=== PATIENT | male | born 1980 | race Caucasian/White ===

== ENCOUNTER 2019-07-28 14:06 | Emergency (ER) | payer MEDICAID, OTHER ==
[~2019-07-28] VITALS: Ht 175.3 cm; Wt 100.0 kg
[2019-07-28 14:57] LABS: BASOPHILS % (AUTO) 0.5 % (0-1); EOSINOPHILS # (AUTO) 0.2 X10'3 (0-0.9); EOSINOPHILS % (AUTO) 3.5 % (0-6); HEMATOCRIT 42.9 % (42.0-52.0); HEMOGLOBIN 14.5 g/dl (14.0-17.9); MEAN CORPUSCULAR HEMOGLOBIN 29.8 PG (27.0-31.0); MEAN CORPUSCULAR HGB CONC 33.8 g/dL (33.0-36.5); MEAN PLATELET VOLUME 9.2 FL (7.4-10.4); MONOCYTES # (AUTO) 0.5 X10'3 (0-0.9); MONOCYTES % (AUTO) 8.6 % (2-12); NEUTROPHILS # (AUTO) 3.4 X10'3 (1.8-7.7); NEUTROPHILS % (AUTO) 55.4 % (42-75); PLATELET COUNT 222 X10'3 (140-440); RED BLOOD COUNT 4.87 X10'6 (4.70-6.10); RED CELL DISTRIBUTION WIDTH 13.1 % (11.5-14.5); WHITE BLOOD COUNT 6.2 X10'3 (4.5-11.0)
[2019-07-28 15:12] LABS: ALANINE AMINOTRANSFERASE 25 U/L (12-78); ALBUMIN 3.8 G/DL (3.4-5.0); ALBUMIN/GLOBULIN RATIO 1.2 (1.1-1.5); ALKALINE PHOSPHATASE 70 IU/L (46-116); ANION GAP 9 (8-16); ASPARTATE AMINO TRANSFERASE 21 U/L (10-37); BILIRUBIN,TOTAL 0.3 MG/DL (0.1-1.0); BLOOD UREA NITROGEN 17 MG/DL (7-18); BUN/CREATININE RATIO 22.7 (5.4-32.0); CALCIUM 8.9 MG/DL (8.5-10.1); CHLORIDE 104 MMOL/L (99-107); CREATININE 0.75 MG/DL (0.60-1.10); ETHANOL < 0.010 GM/DL (0.0-0.010); GLUCOSE 113 MG/DL (70-104); POTASSIUM 3.9 MMOL/L (3.5-5.1); SODIUM 141 MMOL/L (135-145); TOTAL CARBON DIOXIDE 28.1 MMOL/L (24-32); TOTAL PROTEIN 6.9 G/DL (6.4-8.2); eGFR > 90 ML/MIN
--- NOTE | 2019-07-28 15:30 | NUR ---
SECURITY COREY AT BEDSIDE HELPING PT TO GET HANGED INTO GREENS AND CLEAN SOCKS. URINE OBTAINED.
[2019-07-28 15:50] LABS: URINE AMPHETAMINE SCREEN NEGATIVE (Neg); URINE BARBITUATE SCREEN NEGATIVE (Neg); URINE BENZODIAZEPINES SCREEN NEGATIVE (Neg); URINE CANNABINOID SCREEN POSITIVE (Neg); URINE COCAINE SCREEN NEGATIVE (Neg); URINE METHADONE SCREEN NEGATIVE (Neg); URINE OPIATE SCREEN NEGATIVE (Neg); URINE PHENCYCLIDINE SCREEN NEGATIVE (Neg)
[2019-07-28] MEDS ORDERED: NO HOME MEDS (16:03)
--- NOTE | 2019-07-28 18:03 | NUR ---
PT RESTING LAYING IN HIS LEFT SIDE, RESPIRATIONS EVEN AND UNLABORED. NO DISTRESS NOTED AT THIS TIME.
--- NOTE | 2019-07-28 23:40 | NUR ---
Received report from BELTRAN [facility]. Awaiting patient arrival to the unit.
--- NOTE | 2019-07-29 00:05 | NUR ---
Attempted to talk to patient. Patient stated "just leave me alone, bitch." and murmured some more while turning his head away and his eyes closed. Will continue to monitor.
[2019-07-29] MEDS ORDERED: LORazepam 2 mg/ml vial IM ONE (00:10)
[2019-07-29] MEDS ORDERED: diphenhydrAMINE 50 mg/ml inj IM ONE (00:10)
[2019-07-29] MEDS ORDERED: haloperidol lactate 5mg/ml inj IM ONE (00:10)
--- NOTE | 2019-07-29 00:14 | NUR ---
Patient growing agitated, and murmuring things out loud. When approached and told to keep it down, patient started using profanity saying "you can't keep me in this institutionalized mental health place, bitch!", kicking the bed. MD Tracie aware and ordered one time dose of Benadryl 50mg IM, Haldol 5mg IM and Ativan 2mg IM now. Will administer and continue to monitor.
--- NOTE | 2019-07-29 00:45 | NUR ---
Patient's heart rate in high 40's. Patient arousable to shaking, opened eyes, murmured something and went back to sleep.
--- NOTE | 2019-07-29 00:55 | NUR ---
Patient currently resting comfortably.
--- NOTE | 2019-07-29 02:48 | NUR ---
Patient arousable to name now; resting comfortably on 14 even and unlabored respirations per minute. In no apparent distress.
--- NOTE | 2019-07-29 09:15 | NUR ---
PT IS BEING DISRUPTIVE TOWARD THE PT IN THE NEXT ROOM. MAKING LOUD NOISES AND CUSSING. NOTIFY
[2019-07-29] MEDS: OLANZapine 2.5MG tablet PO SCH (09:48)
--- NOTE | 2019-07-29 09:50 | NUR ---
MEDICAL RECORDS FAXED FROM HOSPITAL IN [place], [place] THIS MORNING. PT GIVEN ZYPREXA AT THE FACILITY IN JANUARY 2019. PT IS NOT ALLERGIC TO THE MEDICATION. PT AGREES TO TAKE THE MEDICATION. ADMIN MEDICATION ORDERED BY DR HOLLIS. SECURITY STAND BY NON EMERGENT. PT IS COOPERATIVE AND TAKES MEDICATION WITHOUT ANY PROBLEMS.
[2019-07-29] MEDS ORDERED: OLAN10TA3 PO (12:04)
--- NOTE | 2019-07-29 19:00 | NUR ---
PT RESTING PEACFULLY IN BED
--- NOTE | 2019-07-29 20:15 | NUR ---
PT INDEPENDENTLY REPOSTIONS / MOVES OCCATIONALLY FROM SIDE TO SIDE. CONTENT
--- NOTE | 2019-07-29 21:15 | NUR ---
PT ASKED HIS NEIGHBOR IN ROOM 26 TO QUIET DOWN SHE SPEAK ON THE PHONE , HE IS TRYING TO SLEEP
--- NOTE | 2019-07-29 22:29 | NUR ---
PT RESTING PEACFULL IN BED ON STOMACH AURSOABLE , NO COMPLIANTS
--- NOTE | 2019-07-29 23:30 | NUR ---
pt sleeping peacfully at this time in view of RNs
--- NOTE | 2019-07-29 23:45 | NUR ---
PT SLEEPING COMFORTABLY. SELF POSTIONS IN VIEW OF RNS
--- NOTE | 2019-07-30 00:43 | NUR ---
pt sleeping peacfully .SELF POSITIONING. CONTENT
--- NOTE | 2019-07-30 01:47 | NUR ---
PT SLEEPING PEACFULLY SELF POSITIONING
--- NOTE | 2019-07-30 02:45 | NUR ---
pt sleeping on his left side , content
--- NOTE | 2019-07-30 04:10 | NUR ---
PT ASLEEP . NO CHANGES TO PREVIOUS ASSESSMENT
--- NOTE | 2019-07-30 04:15 | NUR ---
pt up out of bed to bathroom for void
--- NOTE | 2019-07-30 05:18 | NUR ---
pt sleeping comfortably to left side
--- NOTE | 2019-07-30 05:45 | NUR ---
pt to bathroom . when asked if he needed help with the door he mumbled " get the fuvk away from me "
[2019-07-30] MEDS: OLANZapine 2.5MG tablet PO SCH (08:00)
--- NOTE | 2019-07-30 08:15 | NUR ---
pt refusing to take scheduled Zyprexa. States he used to take it and it gave him brain damage. Pt resting quietly in bed.
[2019-07-30] MEDS ORDERED: haloperidol lactate 5mg/ml inj IM ONE (08:50)
[2019-07-30] MEDS ORDERED: diphenhydrAMINE 50 mg/ml inj IM ONE (08:50)
[2019-07-30] MEDS ORDERED: LORazepam 2 mg/ml vial IM ONE (08:50)
--- NOTE | 2019-07-30 09:15 | NUR ---
Pt screaming and yelling random obcenities and cursing. Security at bedside. Pt unable to calm down. Mostly verbal, yelling sitting in his bed. Multiple security officers at bedside, noa lim called. Benadryl, Ativan, and Haldol ordered and given IM. Pt layed down after administration. Had one small verbal outburst after this incident and then layed down in bed. Pt appears to be calm and quiet at this time laying in bed.
--- NOTE | 2019-07-30 10:55 | NUR ---
breaking primary rn, pt is in bed eyes closed, appears to be asleep, no s/s of anxiety observed, regular breathing present
--- NOTE | 2019-07-30 18:30 | NUR ---
Pt sleeping comfortably, self positioning.
[2019-07-30] MEDS ORDERED: haloperidol 1mg tablet PO SCH (20:00)
[2019-07-30] MEDS: LORazepam 1 MG tablet PO SCH (20:00)
--- NOTE | 2019-07-30 21:00 | NUR ---
This RN roused pt; he is still sleeping from B52 administered earlier today. Pt is cooperative and able to answer simple questions but refused parts of the physical assessment and would not answer as to whether he experiencing hallucinations nor did he express any delusions. Pt appeared to be thought blocking and eye contact was poor to none. He wouldn't answer why or where he was currently nor is he aware of the time. He was compliant with HS medications and had a snack after adminstration, used the restroom, then went to sleep.
[2019-07-30] MEDS ORDERED: haloperidol 5mg tablet PO ONE (21:10)
--- NOTE | 2019-07-31 00:08 | NUR ---
Pt sleeping; up to use restroom then returned to bed.
[2019-07-31] MEDS: LORazepam 1 MG tablet PO SCH ×4 (02:00→21:28)
--- NOTE | 2019-07-31 02:00 | NUR ---
Pt's ativan held because pt is sleeping soundly.
--- NOTE | 2019-07-31 03:54 | NUR ---
Up to request snack; had fallen back to sleep by the time this RN returned with food and fresh water.
--- NOTE | 2019-07-31 06:30 | NUR ---
Pt sleeping on his side; RR even and unlabored.
--- NOTE | 2019-07-31 06:30 | NUR ---
Christian correia in ED - 07/31/19 at 1044 by [facility] Pt currently sleeping on her back; normal RR even and unlabored.
[2019-07-31] MEDS: haloperidol 5mg tablet PO SCH ×2 (08:14→21:28)
[2019-07-31] MEDS: OLANZapine 2.5MG tablet PO SCH (08:15)
--- NOTE | 2019-07-31 08:17 | NUR ---
Note yoavsotero in EDM - 07/31/19 at 1045 by SPRING Pt up for breakfast ate 100%. Pt shared with this machine sign writer she is recently separted from . She has a restrain order on him. 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 She was placed in foster care at age 13.
--- NOTE | 2019-07-31 08:25 | NUR ---
Pt agreed to take both Haldol and Zyprexa with his Ativan 1mg. Pt has a history of schizophrenia and currently making delusional statements of a alien of some sort that caused him to be homeless.
--- NOTE | 2019-07-31 10:35 | NUR ---
Mental Health packet sent to [facility] office
--- NOTE | 2019-07-31 10:59 | NUR ---
Pt has been up a few times using the restroom. He occasionally moans in his sleep or yells out.
--- NOTE | 2019-07-31 13:01 | NUR ---
Pt has been up for lunch and snacks. He c/o of hunger. Snacks provided. Pt is calm and cooperative. He has agreed to take all his medications today. Continues to moan and yell out at times and makes delusional statements consisting of unknown entities.
--- NOTE | 2019-07-31 13:40 | NUR ---
pt just seen by ELIAN Constantino, reviewed plan with primary RN, she will review her plan of action.
--- NOTE | 2019-07-31 13:45 | NUR ---
breaking primary RN, SACHA speaking with pt again, reviewed plan, [facility] not [facility] pt [facility] without 30 days on medication, she will cont [id number]
--- NOTE | 2019-07-31 15:11 | NUR ---
Pt hs been sleeping; occasionally stands at the foot of his bed then returns to his bed. He is calm and quiet.
[2019-07-31 17:07] VITALS: BP 106/52
--- NOTE | 2019-07-31 17:18 | NUR ---
Pt is standing at the foot of his bed. When this nurse ask him to come up to the nurses station pt comes up and stands with his head down but does not say anything. He has complained of hunger many times throughout the day. Multiple snacks given to him.
--- NOTE | 2019-07-31 18:34 | NUR ---
Pt sitting up and eating dinner. He makes eye contact when spoken to; this RN confirmed he likes to be called "Rjei". Pt answered "okay" when asked how he was feeling.
--- NOTE | 2019-07-31 21:30 | NUR ---
Pt sleeping since dinner, roused for HS medications. Pt compliant with adminstration. Pt refused most of the physical assessment and would not answer RN questions; he would sometimes nod or lookn at this RN then look away. Pt used the restroom, requested more water, then returned to bed to sleep.
--- NOTE | 2019-07-31 22:28 | NUR ---
Lab erica blood without any complications from patient. He was copperative and followed directions then went back to sleep.
--- NOTE | 2019-08-01 00:21 | NUR ---
Pt sleeping; respirations unlabored; self-positioning.
--- NOTE | 2019-08-01 00:34 | NUR ---
Pt accepted to [facility] to arrange transport, time TBD.
[2019-08-01] MEDS: LORazepam 1 MG tablet PO SCH ×2 (02:00→08:02)
--- NOTE | 2019-08-01 02:02 | NUR ---
Report to BELTRAN eRn. Pt sleeping, self-positioning.
--- NOTE | 2019-08-01 05:03 | NUR ---
The patient appears to be sleeping
--- NOTE | 2019-08-01 07:00 | NUR ---
Received pt asleep in bed without distress noted.
[2019-08-01] MEDS: haloperidol 5mg tablet PO SCH (08:02)
[2019-08-01] MEDS: OLANZapine 2.5MG tablet PO SCH (08:02)
[2019-08-01 08:31] LABS: CLARITY,URINE SLIGHTLY CLOUDY (Clear); COLOR,URINE YELLOW (Yellow); GLUCOSE, URINE NEGATIVE (Neg); KETONES,URINE NEGATIVE (Neg); LEUKOCYTE ESTERASE ,URINE NEGATIVE (Neg); NITRITES, URINE NEGATIVE (Neg); OCCULT BLOOD,URINE NEGATIVE (Neg); PROTEIN,URINE NEGATIVE (Neg); UROBILINOGEN,URINE 0.2 E.U/dL (0.2-1.0)
[2019-08-01 08:43] LABS: UA COLLECTION TYPE CLN CATCH MIDSTREAM
[2019-08-01 08:51] LABS: BACTERIA,URINE NONE SEEN /HPF (Neg); RBC,URINE NONE SEEN /HPF (0-2); SQUAMOUS EPITHELIAL CELL,UR NONE SEEN /LPF (FEW); WBC,URINE NONE SEEN /HPF (0-4)
--- NOTE | 2019-08-01 09:00 | NUR ---
Pt up for breakfast and ate 100%. Pt took medication without incident. After breakfast, pt returned to sleep.
--- NOTE | 2019-08-01 11:00 | NUR ---
[facility] office called and requested a UA and TSH. Both were obtained and results faxed back to [facility] office. Pt remains resting calmly in bed.
--- NOTE | 2019-08-01 12:32 | NUR ---
Gabriela from [facility] office called and stated that their tractor trailer truck driver is on his way to greens picker this pt. to transfer to [facility].
== END 2019-08-01 12:45 ==
LOC: ER 14:08
DX: F29 Unspecified psychosis not due to a substance or known physiological condition (principal); F20.9 Schizophrenia, unspecified; F17.200 Nicotine dependence, unspecified, uncomplicated; F12.90 Cannabis use, unspecified, uncomplicated; R94.6 Abnormal results of thyroid function studies; Z88.8 Allergy status to other drugs, medicaments and biological substances
CPT/HCPCS: 36415; 80053; 80305; 80320; 81001; 84443; 85025; 96372; 99285; J1200; J1630; J2060